=== PATIENT | male | born 1970 | race Caucasian/White ===

== ENCOUNTER 2020-10-27 22:35 | Inpatient (IN) | payer MEDICAID ==
[~2020-10-27] VITALS: Ht 190.5 cm; Wt 92.5 kg
[2020-10-27] MEDS ORDERED: ACETAMINOPHEN 325MG TABLET PO STA (23:25)
[2020-10-27] MEDS ORDERED: LEVOFLOXACIN 750MG PREMIX 150 ML IV ONE (23:30)
[2020-10-28 00:29] LABS: BASOPHILS % 0.7 % (0.0-2.0); EOSINOPHILS % 2.7 % (0.0-5.0); HEMOGLOBIN. 13.9 g/dL (14.0-18.0); MEAN CORPUSCULAR VOLUME 98.1 fL (80.0-94.0); MEAN PLATELET VOLUME 7.5 fl (7.4-10.4); MONOCYTES % 11.7 % (2.0-8.0); NEUTROPHILS % 47.9 % (40.0-76.0); PLATELET 203 x1000/uL (130-400); RED BLOOD CELL COUNT 4.08 mill/uL (4.7-6.1); RED CELL DISTRIBUTION WIDTH 12.7 % (11.6-14.6)
[2020-10-28] MEDS ORDERED: HYDROCODONE/ACETAMINOPHEN 5/325MG TABLET PO ONE (00:30)
[2020-10-28 00:35] LABS: CHLORIDE 106 mEq/L (98-107)
[2020-10-28 00:38] LABS: PROTHROMBIN TIME 10.2 sec (9.6-11.0)
[2020-10-28] MEDS: SODIUM CHLORIDE 0.9% 1,000 ML IV SCH (08:00)
[2020-10-28] MEDS ORDERED: LIDOCAINE HCL 1% 20ML VIAL (Pyxis) INJ ONE ×2 (09:20→11:33)
[2020-10-28] MEDS ORDERED: BACITRACIN 15GM TUBE TOP ONE (09:20)
[2020-10-28] MEDS ORDERED: GENTAMICIN SULF 40MG/ML 2ML VIAL ONE ×2 (09:20→09:22)
[2020-10-28] MEDS ORDERED: SODIUM CHLORIDE 0.9% IRRIG SOL 1,000 ML IR ONE (09:21)
[2020-10-28] MEDS ORDERED: SODIUM CHLORIDE 0.9% INJ 10ML FLUSH IVF ONE (09:21)
[2020-10-28] MEDS ORDERED: BACITRACIN 50,000 UNITS/VIAL ONE ×2 (09:21→09:56)
[2020-10-28] MEDS ORDERED: BUPIVACAINE HCL/PF 0.5% (5MG/ML) 10ML ONE (09:21)
[2020-10-28] MEDS ORDERED: ACETAMINOPHEN 500MG TABLET ONE (11:24)
[2020-10-28] MEDS ORDERED: PROPOFOL 200MG/20ML VIAL IV ONE (11:28)
[2020-10-28] MEDS ORDERED: FENTANYL CITRATE/PF 50MCG/ML 2ML VIAL ONE (11:28)
[2020-10-28] MEDS ORDERED: MIDAZOLAM HCL 2 MG/2 ML VIAL ONE (11:29)
[2020-10-28] MEDS ORDERED: LEVOFLOXACIN 500MG PREMIX 100 ML IV ONE (11:43)
[2020-10-28] MEDS ORDERED: METOCLOPRAMIDE HCL 10MG/2ML VIAL ONE (11:46)
[2020-10-28] MEDS ORDERED: KETOROLAC 30MG/ML VIAL ONE (11:47)
[2020-10-28] MEDS ORDERED: VANCOMYCIN 1 G PREMIX 200 ML IV SCH (12:00)
[2020-10-28] MEDS: HYDROCODONE/ACETAMINOPHEN 5/325MG TABLET PO PRN (18:16)
[2020-10-28 20:00] VITALS: BP 130/80
[2020-10-28] MEDS ORDERED: VANCOMYCIN 1500MG in DEXTROSE 5% WATER 250ML IV NR (20:00)
[2020-10-29] VITALS: BP 127/83
[2020-10-29] MEDS: HYDROCODONE/ACETAMINOPHEN 5/325MG TABLET PO PRN ×4 (00:31→22:38)
[2020-10-29] MEDS: VANCOMYCIN 1 G PREMIX 200 ML IV SCH ×4 (02:26→22:37)
[2020-10-29] MEDS ORDERED: *PATIENT'S OWN MEDICATION STORAGE XX SCH (02:30)
[2020-10-29 03:34] VITALS: BP 122/78
[2020-10-29 04:00] VITALS: BP 134/85
[2020-10-29] MEDS: LEVOFLOXACIN 750MG PREMIX 150 ML IV SCH (11:59)
[2020-10-29 12:00] VITALS: BP 122/80
[2020-10-29] MEDS: SODIUM CHLORIDE 0.9% 1,000 ML IV SCH (13:27)
[2020-10-29 16:00] VITALS: BP 127/85
[2020-10-29 20:00] VITALS: BP 124/86
[2020-10-30] VITALS: BP_SYST 129; BP_SYST 133; BP_DIAS 74; BP_DIAS 83
[2020-10-30] MEDS: ONDANSETRON HCL 4MG/2ML INJ IV PRN ×3 (02:28→18:49)
[2020-10-30] MEDS: SODIUM CHLORIDE 0.9% 1,000 ML IV SCH ×3 (03:39→22:29)
[2020-10-30 04:00] VITALS: BP 160/84
[2020-10-30] MEDS: ACETAMINOPHEN 325MG TABLET PO PRN ×2 (04:27→18:49)
[2020-10-30 06:12] LABS: BASOPHILS % 0.4 % (0.0-2.0); EOSINOPHILS % 1.6 % (0.0-5.0); HEMATOCRIT. 40.3 % (42.0-52.0); LYMPHOCYTES % 9.1 % (20.0-50.0); MEAN CORPUSCULAR HEMOGLOBIN 34.3 pg (28.0-32.0); MEAN CORPUSCULAR VOLUME 98.7 fL (80.0-94.0); MEAN PLATELET VOLUME 8.1 fl (7.4-10.4); MONOCYTES % 1.5 % (2.0-8.0); NEUTROPHILS % 87.4 % (40.0-76.0); PLATELET 178 x1000/uL (130-400); RED BLOOD CELL COUNT 4.08 mill/uL (4.7-6.1); RED CELL DISTRIBUTION WIDTH 12.7 % (11.6-14.6)
[2020-10-30 07:01] LABS: CHLORIDE 99 mEq/L (98-107)
[2020-10-30 07:08] LABS: VANCOMYCIN TROUGH 23.3 ug/mL (5.0-10.0)
[2020-10-30 08:00] VITALS: BP 103/68
[2020-10-30] MEDS ORDERED: SODIUM BICARBONATE 4% (2.4MEQ) 5ML VIAL IV ONE (10:02)
[2020-10-30] MEDS ORDERED: LIDOCAINE HCL 1% 20ML VIAL (Pyxis) INJ ONE (10:03)
[2020-10-30] MEDS: VANCOMYCIN 1 G PREMIX 200 ML IV SCH (11:07)
[2020-10-30 12:00] VITALS: BP 118/66
[2020-10-30] MEDS: LEVOFLOXACIN 750MG PREMIX 150 ML IV SCH (12:49)
[2020-10-30] MEDS: HYDROCODONE/ACETAMINOPHEN 5/325MG TABLET PO PRN ×2 (15:03→22:43)
[2020-10-30 16:00] VITALS: BP 108/65
[2020-10-30 20:35] VITALS: BP 109/65
[2020-10-30] MEDS: VANCOMYCIN 1500MG in DEXTROSE 5% WATER 250ML IV SCH (22:33)
[2020-10-30] MEDS: ENOXAPARIN 40MG/0.4ML SYR SUBCUT SCH (22:33)
[2020-10-31] MEDS: ACETAMINOPHEN 325MG TABLET PO PRN ×2 (01:16→23:57)
[2020-10-31 02:00] VITALS: BP 114/66
[2020-10-31 04:00] VITALS: BP 106/63
[2020-10-31] MEDS: SODIUM CHLORIDE 0.9% 1,000 ML IV SCH ×2 (06:30→17:14)
[2020-10-31] MEDS: HYDROCODONE/ACETAMINOPHEN 5/325MG TABLET PO PRN ×3 (09:40→22:31)
[2020-10-31] MEDS: VANCOMYCIN 1500MG in DEXTROSE 5% WATER 250ML IV SCH ×2 (13:50→22:30)
[2020-10-31] MEDS: LEVOFLOXACIN 750MG PREMIX 150 ML IV SCH (17:14)
[2020-10-31 20:00] VITALS: BP 112/67
[2020-10-31] MEDS: ENOXAPARIN 40MG/0.4ML SYR SUBCUT SCH (21:49)
[2020-11-01] VITALS: BP 105/80
[2020-11-01 04:00] VITALS: BP 99/65
[2020-11-01] MEDS: ACETAMINOPHEN 325MG TABLET PO PRN ×2 (06:28→17:48)
[2020-11-01 07:04] LABS: CHLORIDE 106 mEq/L (98-107)
[2020-11-01 07:09] LABS: BASOPHILS % 0.5 % (0.0-2.0); EOSINOPHILS % 3.3 % (0.0-5.0); HEMATOCRIT. 33.1 % (42.0-52.0); HEMOGLOBIN. 11.4 g/dL (14.0-18.0); LYMPHOCYTES % 19.9 % (20.0-50.0); MEAN CORPUSCULAR HEMOGLOBIN 33.6 pg (28.0-32.0); MEAN CORPUSCULAR VOLUME 97.6 fL (80.0-94.0); MONOCYTES % 12.7 % (2.0-8.0); NEUTROPHILS % 63.6 % (40.0-76.0); PLATELET 126 x1000/uL (130-400); RED BLOOD CELL COUNT 3.39 mill/uL (4.7-6.1); RED CELL DISTRIBUTION WIDTH 12.6 % (11.6-14.6)
[2020-11-01 08:00] VITALS: BP 102/60
[2020-11-01] MEDS: VANCOMYCIN 1500MG in DEXTROSE 5% WATER 250ML IV SCH (08:47)
[2020-11-01] MEDS: LEVOFLOXACIN 750MG PREMIX 150 ML IV SCH (11:59)
[2020-11-01 12:00] VITALS: BP 107/70
[2020-11-01] MEDS: SODIUM CHLORIDE 0.9% 1,000 ML IV SCH ×2 (12:00→22:00)
[2020-11-01] MEDS: HYDROCODONE/ACETAMINOPHEN 5/325MG TABLET PO PRN (12:20)
[2020-11-01] MEDS: VANCOMYCIN 1250MG in DEXTROSE 5% WATER 250ML IV SCH (14:30)
[2020-11-01 17:00] VITALS: BP 117/79
[2020-11-01 20:00] VITALS: BP 117/73
[2020-11-02] MEDS: HYDROCODONE/ACETAMINOPHEN 5/325MG TABLET PO PRN ×3 (00:03→23:27)
[2020-11-02] MEDS: VANCOMYCIN 1250MG in DEXTROSE 5% WATER 250ML IV SCH ×4 (00:03→21:34)
[2020-11-02] MEDS: ENOXAPARIN 40MG/0.4ML SYR SUBCUT SCH ×2 (00:15→21:33)
[2020-11-02 08:00] VITALS: BP 104/74
[2020-11-02] MEDS: SODIUM CHLORIDE 0.9% 1,000 ML IV SCH ×2 (08:00→18:00)
[2020-11-02 08:13] LABS: BASOPHILS % 0.6 % (0.0-2.0); HEMATOCRIT. 35.2 % (42.0-52.0); HEMOGLOBIN. 11.9 g/dL (14.0-18.0); LYMPHOCYTES % 25.7 % (20.0-50.0); MEAN CORPUSCULAR HEMOGLOBIN 32.9 pg (28.0-32.0); MEAN CORPUSCULAR VOLUME 97.6 fL (80.0-94.0); MEAN PLATELET VOLUME 9.2 fl (7.4-10.4); MONOCYTES % 10.3 % (2.0-8.0); NEUTROPHILS % 60.4 % (40.0-76.0); PLATELET 178 x1000/uL (130-400); RED BLOOD CELL COUNT 3.61 mill/uL (4.7-6.1); RED CELL DISTRIBUTION WIDTH 12.1 % (11.6-14.6)
[2020-11-02 08:24] LABS: CHLORIDE 104 mEq/L (98-107)
[2020-11-02 08:56] VITALS: BP 96/71
[2020-11-02] MEDS: LEVOFLOXACIN 750MG PREMIX 150 ML IV SCH (11:00)
[2020-11-02 12:00] VITALS: BP 111/73
[2020-11-02 20:00] VITALS: BP 122/82
[2020-11-02 23:27] VITALS: BP 115/75
[2020-11-03 04:00] VITALS: BP 115/78
[2020-11-03 05:10] LABS: CHLORIDE 101 mEq/L (98-107)
[2020-11-03] MEDS: VANCOMYCIN 1250MG in DEXTROSE 5% WATER 250ML IV SCH (05:12)
[2020-11-03] MEDS: SODIUM CHLORIDE 0.9% 1,000 ML IV SCH (05:13)
[2020-11-03 05:20] LABS: VANCOMYCIN TROUGH 19.8 ug/mL (5.0-10.0)
[2020-11-03] MEDS: HYDROCODONE/ACETAMINOPHEN 5/325MG TABLET PO PRN (05:23)
[2020-11-03 08:00] VITALS: BP 119/75
[2020-11-03] MEDS: LEVOFLOXACIN 750MG PREMIX 150 ML IV SCH (10:01)
[2020-11-03 12:00] VITALS: BP 126/80
[2020-11-03 13:42] VITALS: BP 126/80
[2020-11-04] MEDS ORDERED: LEVOFLOXACIN 500MG TABLET PO SCH (11:00)
== END 2020-11-03 14:32 | disposition home health service (06) | DRG 710 ==
LOC: ER 22:35 → 6EST 10-28 01:10 → ENRESERV 10-28 09:47 → ER 10-28 10:56 → 6WST 10-30 18:05 → 5WST 10-31 01:53 → 6EST 11-03 12:05
PROVIDERS: ADMIT Internal Medicine; ATTEND Internal Medicine
PROC: 0Q9N0ZZ Drainage of Right Metatarsal, Open Approach (ICD-10-PCS; principal; 2020-10-28)
PROC: 0QBN0ZZ Excision of Right Metatarsal, Open Approach (ICD-10-PCS; 2020-10-28)
PROC: 05HY33Z Insertion of Infusion Device into Upper Vein, Percutaneous Approach (ICD-10-PCS; 2020-10-30)
PROC: B54MZZA Ultrasonography of Right Upper Extremity Veins, Guidance (ICD-10-PCS; 2020-10-30)
DX: A41.9 Sepsis, unspecified organism (principal); L02.611 Cutaneous abscess of right foot; L03.115 Cellulitis of right lower limb; J45.909 Unspecified asthma, uncomplicated; E78.5 Hyperlipidemia, unspecified; E78.00 Pure hypercholesterolemia, unspecified; G62.9 Polyneuropathy, unspecified; L97.919 Non-pressure chronic ulcer of unspecified part of right lower leg with unspecified severity; Z20.822 Contact with and (suspected) exposure to COVID-19; Z88.0 Allergy status to penicillin
CPT/HCPCS: 36415; 71045; 73630; 76937; 80048; 80053; 80202; 84145; 85025; 87070; 87075; 87426; 87804; 93005; 97022; 97162; 99285; C1725; C1893; J1580; J1650; J1885; J1956; J2250; J2405; J2704; J2765; J3010; J3370; J3490; J7030; J7060; U0003

== ENCOUNTER 2021-04-05 22:06 | Inpatient (IN) | payer MEDICAID ==
[~2021-04-05] VITALS: Ht 172.7 cm; Wt 98.0 kg
[2021-04-05] MEDS ORDERED: PANTOPRAZOLE SODIUM 40 MG/VIAL IV STA (22:24)
[2021-04-05] MEDS ORDERED: ONDANSETRON HCL 4MG/2ML INJ IV STA (22:24)
[2021-04-05] MEDS ORDERED: OCTREOTIDE 1,000 MCG in SODIUM CHLORIDE 0.9% 100 ML IV STA (22:24)
[2021-04-05] MEDS ORDERED: OCTREOTIDE ACETATE 50 MCG/ML 1ML IV STA (22:24)
[2021-04-05] MEDS ORDERED: SODIUM CHLORIDE 0.9% 1,000 ML IV ONE ×2 (22:30)
[2021-04-05 23:03] LABS: BASOPHILS % 0.2 % (0.0-2.0); EOSINOPHILS % 0.5 % (0.0-5.0); HEMATOCRIT. 34.9 % (42.0-52.0); HEMOGLOBIN. 11.7 g/dL (14.0-18.0); LYMPHOCYTES % 12.8 % (20.0-50.0); MEAN CORPUSCULAR HEMOGLOBIN 32.9 pg (28.0-32.0); MEAN CORPUSCULAR VOLUME 97.8 fL (80.0-94.0); MEAN PLATELET VOLUME 9.4 fl (7.4-10.4); MONOCYTES % 4.1 % (2.0-8.0); NEUTROPHILS % 82.4 % (40.0-76.0); PLATELET 219 x1000/uL (130-400); RED BLOOD CELL COUNT 3.57 mill/uL (4.7-6.1); RED CELL DISTRIBUTION WIDTH 14.7 % (11.6-14.6)
[2021-04-05 23:10] LABS: CHLORIDE 114 mEq/L (98-107)
[2021-04-05 23:14] LABS: INR 1.1; PROTHROMBIN TIME 11.3 sec (9.6-11.0)
[2021-04-06] VITALS (65 sets, daily range): BP systolic 78–145; BP diastolic 41–89
[2021-04-06] MEDS ORDERED: SODIUM CHLORIDE 0.9% 1,000 ML IV ONE ×2 (01:45→04:30)
[2021-04-06 02:05] LABS: BASOPHILS % 0.4 % (0.0-2.0); EOSINOPHILS % 0.2 % (0.0-5.0); HEMATOCRIT. 33.7 % (42.0-52.0); HEMOGLOBIN. 11.2 g/dL (14.0-18.0); LYMPHOCYTES % 21.4 % (20.0-50.0); MEAN CORPUSCULAR HEMOGLOBIN 32.9 pg (28.0-32.0); MEAN CORPUSCULAR VOLUME 98.6 fL (80.0-94.0); MEAN PLATELET VOLUME 9.5 fl (7.4-10.4); MONOCYTES % 8.1 % (2.0-8.0); NEUTROPHILS % 69.9 % (40.0-76.0); PLATELET 146 x1000/uL (130-400); RED BLOOD CELL COUNT 3.42 mill/uL (4.7-6.1); RED CELL DISTRIBUTION WIDTH 14.8 % (11.6-14.6)
[2021-04-06] MEDS ORDERED: IOHEXOL-300 100 ML BOTTLE ONE (02:53)
[2021-04-06] MEDS ORDERED: NOREPINEPHRINE 8MG/250ML PMX 250 ML IV STA (04:25)
[2021-04-06] MEDS ORDERED: METRONIDAZOLE 500 MG PREMIX 100 ML IV ONE (04:30)
[2021-04-06] MEDS ORDERED: VANCOMYCIN 1 G PREMIX 200 ML IV ONE (04:30)
[2021-04-06] MEDS ORDERED: LIDOCAINE HCL 1% 20ML VIAL (Pyxis) INJ ONE (08:51)
[2021-04-06] MEDS ORDERED: ONDANSETRON HCL 4MG/2ML INJ IV PRN (09:00)
[2021-04-06] MEDS ORDERED: ACETAMINOPHEN 325MG TABLET PO PRN (09:00)
[2021-04-06] MEDS: PANTOPRAZOLE SODIUM 40 MG/VIAL IV SCH ×2 (09:49→16:16)
[2021-04-06] MEDS: DEXT 5%/0.45% NACL 1000ML 1,000 ML IV SCH ×2 (09:51→20:22)
[2021-04-06 11:23] LABS: *AMPHETAMINES SCREEN URINE NEGATIVE (NEGATIVE); *BARBITURATES SCREEN URINE NEGATIVE (NEGATIVE)
[2021-04-06] MEDS: OCTREOTIDE 1,000 MCG in SODIUM CHLORIDE 0.9% 98 ML IV SCH (11:23)
[2021-04-06 11:24] LABS: *BENZODIAZEPINES SCREEN URINE NEGATIVE (NEGATIVE); *COCAINE SCREEN URINE PRESUMTIVE POSITIVE (NEGATIVE); METHADONE URINE SCREEN NEGATIVE (NEGATIVE); OPIATES URINE SCREEN PRESUMTIVE POSITIVE (NEGATIVE); PHENCYCLIDINE URINE SCREEN NEGATIVE (NEGATIVE)
[2021-04-06 11:25] LABS: CANNABINOID URINE SCREEN NEGATIVE (NEGATIVE)
[2021-04-06] MEDS: NOREPINEPHRINE 8 MG in DEXT 5% WATER 242 ML IV PRN (15:18)
[2021-04-06] MEDS: HYDROCODONE/ACETAMINOPHEN 5/325MG TABLET PO PRN (16:11)
[2021-04-06 23:53] LABS: HEMATOCRIT 26.4 % (42.0-52.0)
[2021-04-07] VITALS (90 sets, daily range): BP systolic 66–150; BP diastolic 33–97
[2021-04-07] MEDS: HYDROCODONE/ACETAMINOPHEN 5/325MG TABLET PO PRN ×2 (00:07→18:59)
[2021-04-07 00:14] LABS: TOTAL IRON BINDING CAPACITY 245 ug/dL (250-450)
[2021-04-07 01:13] LABS: FOLIC ACID (FOLATE) SERUM 15.7 ng/mL (>5.38)
[2021-04-07 04:33] LABS: HEMOGLOBIN. 8.8 g/dL (14.0-18.0); MEAN CORPUSCULAR HEMOGLOBIN 32.5 pg (28.0-32.0); MEAN CORPUSCULAR VOLUME 96.2 fL (80.0-94.0); MEAN PLATELET VOLUME 9.3 fl (7.4-10.4); PLATELET 176 x1000/uL (130-400)
[2021-04-07 04:38] LABS: CHLORIDE 109 mEq/L (98-107)
[2021-04-07 04:40] LABS: BASOPHILS % 0.3 % (0.0-2.0); EOSINOPHILS % 3.9 % (0.0-5.0); LYMPHOCYTES % 25.2 % (20.0-50.0); NEUTROPHILS % 61.6 % (40.0-76.0)
[2021-04-07 04:42] LABS: PARTIAL THROMBOPLASTIN TIME 25.1 sec (23.4-31.0)
[2021-04-07] MEDS: DEXT 5%/0.45% NACL 1000ML 1,000 ML IV SCH ×2 (05:37→15:10)
[2021-04-07] MEDS: PANTOPRAZOLE SODIUM 40 MG/VIAL IV SCH ×2 (08:34→17:28)
[2021-04-07] MEDS: MIDODRINE HCL 5MG TABLET PO SCH ×3 (10:00→20:00)
[2021-04-07] MEDS: OCTREOTIDE 1,000 MCG in SODIUM CHLORIDE 0.9% 98 ML IV SCH (12:10)
[2021-04-07] MEDS: NOREPINEPHRINE 8 MG in DEXT 5% WATER 242 ML IV PRN (13:47)
[2021-04-07] MEDS ORDERED: KETAMINE HCL 50 MG/ML 10ML ONE (14:32)
[2021-04-07] MEDS ORDERED: MIDAZOLAM HCL 5 MG/5 ML VIAL ONE (16:07)
[2021-04-07] MEDS ORDERED: EPHEDRINE SULFATE 50MG/ML VIAL ONE (16:15)
[2021-04-08] VITALS (97 sets, daily range): BP systolic 73–163; BP diastolic 40–108
[2021-04-08] MEDS: DEXT 5%/0.45% NACL 1000ML 1,000 ML IV SCH (01:00)
[2021-04-08 05:58] LABS: BASOPHILS % 0.5 % (0.0-2.0); CHLORIDE 108 mEq/L (98-107); EOSINOPHILS % 4.7 % (0.0-5.0); HEMATOCRIT. 25.2 % (42.0-52.0); HEMOGLOBIN. 8.8 g/dL (14.0-18.0); LYMPHOCYTES % 35.1 % (20.0-50.0); MEAN CORPUSCULAR HEMOGLOBIN 33.4 pg (28.0-32.0); MEAN CORPUSCULAR VOLUME 95.4 fL (80.0-94.0); MEAN PLATELET VOLUME 9.3 fl (7.4-10.4); MONOCYTES % 10.6 % (2.0-8.0); NEUTROPHILS % 49.1 % (40.0-76.0); PLATELET 149 x1000/uL (130-400); RED BLOOD CELL COUNT 2.64 mill/uL (4.7-6.1); RED CELL DISTRIBUTION WIDTH 14.5 % (11.6-14.6)
[2021-04-08] MEDS ORDERED: KCL 20MEQ/100ML PREMIX 100 ML IV SCH (07:30)
[2021-04-08] MEDS: PANTOPRAZOLE SODIUM 40 MG/VIAL IV SCH ×2 (09:07→16:12)
[2021-04-08] MEDS: SUCRALFATE 1G TABLET PO SCH ×4 (09:08→20:15)
[2021-04-08] MEDS: MIDODRINE HCL 5MG TABLET PO SCH ×3 (09:09→16:12)
[2021-04-08] MEDS: HYDROCODONE/ACETAMINOPHEN 5/325MG TABLET PO PRN ×2 (09:10→20:15)
[2021-04-09] VITALS (99 sets, daily range): BP systolic 72–156; BP diastolic 24–78
[2021-04-09] MEDS ORDERED: SODIUM CHLORIDE 0.9% 200 ML IV NR ×2 (02:30→02:45)
[2021-04-09] MEDS ORDERED: SODIUM CHLORIDE 0.9% 200 ML IV ONE (02:30)
[2021-04-09] MEDS ORDERED: ATROPINE SULFATE 1MG/10ML SYR IV NR (04:15)
[2021-04-09] MEDS: DOPAMINE 400MG/250ML PREMIX 250 ML IV PRN ×2 (04:25→18:22)
[2021-04-09 05:21] LABS: BASOPHILS % 0.6 % (0.0-2.0); EOSINOPHILS % 4.2 % (0.0-5.0); HEMOGLOBIN. 8.7 g/dL (14.0-18.0); LYMPHOCYTES % 40.3 % (20.0-50.0); MEAN CORPUSCULAR HEMOGLOBIN 33.1 pg (28.0-32.0); MEAN CORPUSCULAR VOLUME 94.7 fL (80.0-94.0); MEAN PLATELET VOLUME 9.6 fl (7.4-10.4); MONOCYTES % 10.9 % (2.0-8.0); PLATELET 176 x1000/uL (130-400); RED BLOOD CELL COUNT 2.64 mill/uL (4.7-6.1); RED CELL DISTRIBUTION WIDTH 14.7 % (11.6-14.6)
[2021-04-09 05:25] LABS: CHLORIDE 107 mEq/L (98-107)
[2021-04-09] MEDS ORDERED: SUCR1TAB30 PO (08:53)
[2021-04-09] MEDS ORDERED: OMEP40CA12 MT (08:53)
[2021-04-09] MEDS: HYDROCODONE/ACETAMINOPHEN 5/325MG TABLET PO PRN ×2 (09:17→21:56)
[2021-04-09] MEDS: PANTOPRAZOLE SODIUM 40 MG/VIAL IV SCH ×2 (09:30→17:19)
[2021-04-09] MEDS: MIDODRINE HCL 5MG TABLET PO SCH ×3 (09:31→17:19)
[2021-04-09] MEDS: SUCRALFATE 1G TABLET PO SCH ×4 (09:31→21:51)
[2021-04-09] MEDS: LACTULOSE 20G/30ML UDC PO PRN ×2 (16:29→21:51)
[2021-04-09] MEDS ORDERED: LACTULOSE 20G/30ML UDC PO SCH (22:00)
[2021-04-10] VITALS (100 sets, daily range): BP systolic 51–147; BP diastolic 39–87
[2021-04-10] MEDS: DOPAMINE 400MG/250ML PREMIX 250 ML IV PRN ×2 (05:34→15:29)
[2021-04-10] MEDS: LACTULOSE 20G/30ML UDC PO PRN ×2 (05:38→13:23)
[2021-04-10 05:47] LABS: BASOPHILS % 0.5 % (0.0-2.0); EOSINOPHILS % 4.6 % (0.0-5.0); HEMATOCRIT. 26.5 % (42.0-52.0); HEMOGLOBIN. 9.3 g/dL (14.0-18.0); LYMPHOCYTES % 35.6 % (20.0-50.0); MEAN CORPUSCULAR HEMOGLOBIN 32.8 pg (28.0-32.0); MEAN CORPUSCULAR VOLUME 93.4 fL (80.0-94.0); MONOCYTES % 11.8 % (2.0-8.0); NEUTROPHILS % 47.5 % (40.0-76.0); RED BLOOD CELL COUNT 2.84 mill/uL (4.7-6.1); RED CELL DISTRIBUTION WIDTH 14.6 % (11.6-14.6)
[2021-04-10 05:51] LABS: CHLORIDE 107 mEq/L (98-107)
[2021-04-10] MEDS: MIDODRINE HCL 5MG TABLET PO SCH ×3 (08:19→17:30)
[2021-04-10] MEDS: PANTOPRAZOLE SODIUM 40 MG/VIAL IV SCH ×2 (08:19→17:30)
[2021-04-10] MEDS: SUCRALFATE 1G TABLET PO SCH ×4 (08:19→22:32)
[2021-04-10] MEDS: HYDROCODONE/ACETAMINOPHEN 5/325MG TABLET PO PRN ×2 (15:24→22:32)
[2021-04-11] VITALS (91 sets, daily range): BP systolic 62–161; BP diastolic 37–112
[2021-04-11] MEDS: DOPAMINE 400MG/250ML PREMIX 250 ML IV PRN ×3 (02:04→16:41)
[2021-04-11] MEDS: LACTULOSE 20G/30ML UDC PO PRN (06:01)
[2021-04-11 08:28] LABS: BASOPHILS % 0.6 % (0.0-2.0); EOSINOPHILS % 3.5 % (0.0-5.0); HEMATOCRIT. 29.4 % (42.0-52.0); HEMOGLOBIN. 10.4 g/dL (14.0-18.0); LYMPHOCYTES % 28.9 % (20.0-50.0); MEAN CORPUSCULAR HEMOGLOBIN 32.9 pg (28.0-32.0); MEAN CORPUSCULAR VOLUME 93.4 fL (80.0-94.0); MEAN PLATELET VOLUME 8.9 fl (7.4-10.4); PLATELET 241 x1000/uL (130-400); RED BLOOD CELL COUNT 3.15 mill/uL (4.7-6.1); RED CELL DISTRIBUTION WIDTH 14.3 % (11.6-14.6)
[2021-04-11 08:36] LABS: CHLORIDE 105 mEq/L (98-107)
[2021-04-11] MEDS: SUCRALFATE 1G TABLET PO SCH ×4 (08:55→21:38)
[2021-04-11] MEDS: PANTOPRAZOLE SODIUM 40 MG/VIAL IV SCH ×2 (08:55→16:59)
[2021-04-11] MEDS: MIDODRINE HCL 5MG TABLET PO SCH ×3 (08:55→16:58)
[2021-04-11] MEDS: HYDROCODONE/ACETAMINOPHEN 5/325MG TABLET PO PRN (22:05)
[2021-04-12] VITALS (116 sets, daily range): BP systolic 56–162; BP diastolic 36–109
[2021-04-12] MEDS: DOPAMINE 400MG/250ML PREMIX 250 ML IV PRN ×2 (00:12→08:25)
[2021-04-12] MEDS: HYDROCODONE/ACETAMINOPHEN 5/325MG TABLET PO PRN (05:46)
[2021-04-12] MEDS: PHENYLEPHRINE 100 MG in DEXT 5% WATER 240 ML IV PRN (05:58)
[2021-04-12] MEDS: MIDODRINE HCL 5MG TABLET PO SCH ×3 (08:24→21:48)
[2021-04-12] MEDS: SUCRALFATE 1G TABLET PO SCH ×4 (08:24→21:48)
[2021-04-12] MEDS: PANTOPRAZOLE SODIUM 40 MG/VIAL IV SCH ×2 (08:25→16:17)
[2021-04-12] MEDS: METRONIDAZOLE 500MG TABLET PO SCH ×2 (10:31→21:48)
[2021-04-12] MEDS: CLARITHROMYCIN 500MG TABLET PO SCH ×2 (11:49→21:48)
[2021-04-12] MEDS: FLUDROCORTISONE ACETATE 0.1MG TABLET PO SCH (11:49)
[2021-04-12] MEDS: DOCUSATE SODIUM 100MG CAPSULE PO SCH (16:17)
[2021-04-13] VITALS (104 sets, daily range): BP systolic 74–155; BP diastolic 40–101
[2021-04-13] MEDS: HYDROCODONE/ACETAMINOPHEN 5/325MG TABLET PO PRN (05:49)
[2021-04-13] MEDS: MIDODRINE HCL 5MG TABLET PO SCH ×3 (05:49→21:10)
[2021-04-13 05:57] LABS: CHLORIDE 105 mEq/L (98-107)
[2021-04-13 06:08] LABS: BASOPHILS % 0.7 % (0.0-2.0); EOSINOPHILS % 3.8 % (0.0-5.0); HEMATOCRIT. 28.9 % (42.0-52.0); HEMOGLOBIN. 10.1 g/dL (14.0-18.0); LYMPHOCYTES % 33.5 % (20.0-50.0); MEAN CORPUSCULAR HEMOGLOBIN 32.5 pg (28.0-32.0); MEAN CORPUSCULAR VOLUME 93.3 fL (80.0-94.0); MEAN PLATELET VOLUME 8.3 fl (7.4-10.4); MONOCYTES % 13.5 % (2.0-8.0); NEUTROPHILS % 48.5 % (40.0-76.0); PLATELET 340 x1000/uL (130-400); RED CELL DISTRIBUTION WIDTH 14.7 % (11.6-14.6)
[2021-04-13] MEDS: PHENYLEPHRINE 100 MG in DEXT 5% WATER 240 ML IV PRN ×2 (06:54→08:03)
[2021-04-13] MEDS: PANTOPRAZOLE SODIUM 40 MG/VIAL IV SCH ×2 (08:02→18:17)
[2021-04-13] MEDS: SUCRALFATE 1G TABLET PO SCH ×4 (08:02→21:09)
[2021-04-13] MEDS: CLARITHROMYCIN 500MG TABLET PO SCH ×2 (08:02→21:09)
[2021-04-13] MEDS: FLUDROCORTISONE ACETATE 0.1MG TABLET PO SCH (08:02)
[2021-04-13] MEDS: METRONIDAZOLE 500MG TABLET PO SCH ×2 (08:02→21:09)
[2021-04-13] MEDS: DOCUSATE SODIUM 100MG CAPSULE PO SCH ×2 (08:03→17:00)
[2021-04-13] MEDS: SODIUM CHLORIDE 0.9% 1,000 ML IV SCH ×2 (09:53→22:00)
[2021-04-13] MEDS ORDERED: SODIUM CHLORIDE 0.9% 500 ML IV SCH (11:15)
[2021-04-14] VITALS (56 sets, daily range): BP systolic 79–134; BP diastolic 38–79
[2021-04-14] MEDS: HYDROCODONE/ACETAMINOPHEN 5/325MG TABLET PO PRN (03:06)
[2021-04-14] MEDS: PHENYLEPHRINE 100 MG in DEXT 5% WATER 240 ML IV PRN (03:07)
[2021-04-14] MEDS: MIDODRINE HCL 5MG TABLET PO SCH ×2 (05:44→13:03)
[2021-04-14 05:59] LABS: EOSINOPHILS % 3.5 % (0.0-5.0); HEMATOCRIT. 29.5 % (42.0-52.0); LYMPHOCYTES % 42.5 % (20.0-50.0); MEAN CORPUSCULAR HEMOGLOBIN 31.9 pg (28.0-32.0); MEAN CORPUSCULAR VOLUME 94.1 fL (80.0-94.0); MEAN PLATELET VOLUME 9.3 fl (7.4-10.4); MONOCYTES % 10.7 % (2.0-8.0); NEUTROPHILS % 42.3 % (40.0-76.0); PLATELET 302 x1000/uL (130-400); RED BLOOD CELL COUNT 3.13 mill/uL (4.7-6.1); RED CELL DISTRIBUTION WIDTH 14.3 % (11.6-14.6)
[2021-04-14 06:00] LABS: CHLORIDE 104 mEq/L (98-107)
[2021-04-14] MEDS: SUCRALFATE 1G TABLET PO SCH ×2 (08:30→13:02)
[2021-04-14] MEDS: METRONIDAZOLE 500MG TABLET PO SCH (08:30)
[2021-04-14] MEDS: CLARITHROMYCIN 500MG TABLET PO SCH (08:30)
[2021-04-14] MEDS: FLUDROCORTISONE ACETATE 0.1MG TABLET PO SCH (08:30)
[2021-04-14] MEDS: DOCUSATE SODIUM 100MG CAPSULE PO SCH (08:31)
[2021-04-14] MEDS: PANTOPRAZOLE SODIUM 40 MG/VIAL IV SCH (08:31)
[2021-04-14] MEDS ORDERED: POTASSIUM CHLORIDE 20MEQ TABLET SR PO SCH (09:00)
[2021-04-14] MEDS ORDERED: METR-167 PO (10:39)
[2021-04-14] MEDS ORDERED: MIDO10TA MT (10:39)
[2021-04-14] MEDS ORDERED: CLAR-44 PO (10:39)
== END 2021-04-14 14:10 | disposition home or self-care (01) | DRG 241 ==
LOC: ER 22:06 → MICUSO 23:51 → EDBEDREQTM 23:57 → EDBEDREQ 23:57 → ENRESERV 04-06 07:39 → CVICU 04-07 12:24
PROVIDERS: ADMIT Internal Medicine; ATTEND Internal Medicine
PROC: 02HV33Z Insertion of Infusion Device into Superior Vena Cava, Percutaneous Approach (ICD-10-PCS; 2021-04-06)
PROC: B548ZZA Ultrasonography of Superior Vena Cava, Guidance (ICD-10-PCS; 2021-04-06)
PROC: 30233N1 Transfusion of Nonautologous Red Blood Cells into Peripheral Vein, Percutaneous Approach (ICD-10-PCS; 2021-04-06)
PROC: 0DB78ZX Excision of Stomach, Pylorus, Via Natural or Artificial Opening Endoscopic, Diagnostic (ICD-10-PCS; principal; 2021-04-07)
DX: K25.4 Chronic or unspecified gastric ulcer with hemorrhage (principal); R57.8 Other shock; F10.20 Alcohol dependence, uncomplicated; D50.0 Iron deficiency anemia secondary to blood loss (chronic); E87.8 Other disorders of electrolyte and fluid balance, not elsewhere classified; B96.81 Helicobacter pylori [H. pylori] as the cause of diseases classified elsewhere; K29.71 Gastritis, unspecified, with bleeding; D53.9 Nutritional anemia, unspecified; K76.0 Fatty (change of) liver, not elsewhere classified; N20.0 Calculus of kidney; K52.9 Noninfective gastroenteritis and colitis, unspecified; K26.4 Chronic or unspecified duodenal ulcer with hemorrhage; I34.0 Nonrheumatic mitral (valve) insufficiency; K29.81 Duodenitis with bleeding; K44.9 Diaphragmatic hernia without obstruction or gangrene; F14.10 Cocaine abuse, uncomplicated; E78.00 Pure hypercholesterolemia, unspecified; Z20.822 Contact with and (suspected) exposure to COVID-19; E78.5 Hyperlipidemia, unspecified; I95.1 Orthostatic hypotension; J45.909 Unspecified asthma, uncomplicated; Z82.49 Family history of ischemic heart disease and other diseases of the circulatory system; Z88.0 Allergy status to penicillin
CPT/HCPCS: 36415; 71045; 74177; 76937; 80048; 80053; 80305; 82607; 82728; 82746; 83036; 83540; 83550; 83605; 83735; 84484; 85014; 85018; 85025; 86850; 86900; 86920; 87426; 88305; 88312; 88313; 93005; 93306; 93970; 99291; C1725; C9113; J1265; J2250; J2354; J2370; J2405; J3370; J3480; J3490; J7030; J7040; J7050; J7060; P9016; Q9967

== ENCOUNTER 2022-10-06 15:59 | Emergency (ER) | payer MEDICAID ==
[~2022-10-06] VITALS: Ht 182.9 cm; Wt 89.0 kg
[~2022-10-06 15:59] MED LIST: ALBU6.7H3 IH; APIX5TAB MT; APIX5TAB PO; DOCU-138 MT; FERR325T23 PO; HYDR-4001 MT; OMEP40CA20 MT; SUCR1TAB30 PO
[2022-10-06 16:08] VITALS: BP 136/84
== END 2022-10-06 18:58 | disposition left against medical advice (07) ==
LOC: ER 15:59
DX: Z53.21 Procedure and treatment not carried out due to patient leaving prior to being seen by health care provider (principal)

== ENCOUNTER 2022-10-10 17:41 | Emergency (ER) | payer MEDICAID ==
[~2022-10-10] VITALS: Ht 188 cm; Wt 120.0 kg
[2022-10-10 17:54] VITALS: BP 134/86
== END 2022-10-10 23:38 | disposition left against medical advice (07) ==
LOC: ER 17:41
DX: Z53.21 Procedure and treatment not carried out due to patient leaving prior to being seen by health care provider (principal)

== ENCOUNTER 2024-01-24 17:56 | Emergency (ER) | payer MEDICAID ==
[~2024-01-24] VITALS: Ht 188 cm; Wt 82.0 kg
[2024-01-24 18:07] VITALS: BP 122/75; PULSE 81; RESP 19; TEMP 98; O2SAT 99
[2024-01-24 19:55] LABS: BASOPHILS % 0.5 % (0.0-2.0); EOSINOPHILS % 0.8 % (0.0-5.0); HEMATOCRIT. 40.6 % (42.0-52.0); HEMOGLOBIN. 13.7 g/dL (14.0-18.0); LYMPHOCYTES % 39.4 % (20.0-50.0); MEAN CORPUSCULAR HEMOGLOBIN 33.5 pg (28.0-32.0); MEAN CORPUSCULAR HGB CONC 33.8 g/dL (31.0-37.0); MEAN CORPUSCULAR VOLUME 99.2 fL (80.0-94.0); MEAN PLATELET VOLUME 9.4 fl (7.4-10.4); MONOCYTES % 8.1 % (2.0-8.0); NEUTROPHILS % 51.2 % (40.0-76.0); PLATELET 170 x1000/uL (130-400); RED CELL DISTRIBUTION WIDTH 12.7 % (11.6-14.6)
[2024-01-24 20:11] LABS: ALANINE AMINOTRANSFERASE 31 IU/L (10-49); ALBUMIN 4.6 g/dL (3.2-4.8); ASPARTATE AMINOTRANSFERASE 33 IU/L (<34); BILIRUBIN TOTAL 0.4 mg/dL (0.1-1.0); CALCIUM 9.1 mg/dL (8.7-10.4); CARBON DIOXIDE 27 mEq/L (21-32); CHLORIDE 106 mEq/L (98-107); CREATININE 0.9 mg/dL (0.6-1.3); GLUCOSE 105 mg/dL (70-105); POTASSIUM 3.6 mEq/L (3.5-5.1); SODIUM 138 mEq/L (136-145); UREA NITROGEN BLOOD 11 mg/dL (9-23)
[2024-01-24] MEDS ORDERED: CEFEPIME 1GM IN DEXT 5% 50ML IV STA (20:24)
[2024-01-24] MEDS ORDERED: VANCOMYCIN 1.5GM/250ML 250 ML IV STA (20:24)
== END 2024-01-25 00:59 | disposition left against medical advice (07) ==
LOC: ER 17:56 → CANBEDREQ 01-25 00:59
DX: M86.10 Other acute osteomyelitis, unspecified site (principal); F10.20 Alcohol dependence, uncomplicated; Z98.890 Other specified postprocedural states; Z90.49 Acquired absence of other specified parts of digestive tract; Z88.8 Allergy status to other drugs, medicaments and biological substances; Z88.6 Allergy status to analgesic agent
CPT/HCPCS: 36415; 73630; 80053; 85025; 99284